=== PATIENT | female | born 1950 | race African-American/Black ===

== ENCOUNTER 2023-05-01 02:34 | Emergency (ER) | payer OTHER ==
[~2023-05-01] VITALS: Ht 165.1 cm; Wt 100.0 kg
[2023-05-01 02:55] LABS: Basophils # (auto) 0.1 10 ^3/uL (0-0.2); Basophils % (auto) 1.2 % (0.0-2.0); Eosinophils # (auto) 0.2 10 ^3/uL (0-0.8); Eosinophils % (auto) 2.9 % (0.0-7.0); Hemoglobin 13.4 g/dL (12.2-16.2); Lymphocytes # (auto) 2.7 10 ^3/uL (0.4-5.4); Lymphocytes % (auto) 41.3 % (10.0-50.0); Mean Corpuscular Hemoglobin 29.5 pg (28.0-32.0); Mean Corpuscular Hgb Conc. 34.3 g/dL (32.0-36.0); Mean Corpuscular Volume 85.9 fL (80.0-100.0); Monocytes # (auto) 0.4 10 ^3/uL (0-1.3); Neutrophils # (auto) 3.2 10 ^3/uL (1.6-8.6); Neutrophils % (auto) 48.6 % (37.0-80.0); Nucleated Red Blood Cells % 0.2 %; Red Blood Cells 4.53 10^6/uL (4.0-5.20); Red Cell Distribution Width 14.9 % (11.8-14.3); White Blood Cell 6.6 10^3/uL (4.4-10.8)
[2023-05-01 03:12] LABS: Albumin 3.2 g/dL (3.4-5.0); BUN/Creatinine Ratio 12.4 (10.0-20.0); Calcium 9.1 mg/dL (8.5-10.1); Magnesium 2.1 mg/dL (1.6-2.6); Potassium 3.6 mmol/L (3.5-5.1)
[2023-05-01 03:15] LABS: Bilirubin, Total 0.2 mg/dL (0.2-1.0); Total Protein 8.3 g/dL (6.4-8.2)
[2023-05-01 03:28] LABS: INR 0.94 (0.9-1.15); Partial Thromboplastin Time 29.8 sec (24.6-33.4)
[2023-05-01 06:55] VITALS: BP 134/50
== END 2023-05-01 07:01 | disposition home or self-care (01) ==
LOC: ER 02:34
DX: R00.2 Palpitations (principal); I51.7 Cardiomegaly; E88.09 Other disorders of plasma-protein metabolism, not elsewhere classified; R73.9 Hyperglycemia, unspecified; J18.1 Lobar pneumonia, unspecified organism; Z88.6 Allergy status to analgesic agent; Z79.899 Other long term (current) drug therapy
CPT/HCPCS: 36415; 71045; 80053; 83735; 83880; 84484; 85025; 85610; 85730; 93005